=== PATIENT | female | born 1990 | race American Indian/Alaskan Native ===

== ENCOUNTER 2017-03-16 11:27 | Emergency (ER) | payer BC ==
[2017-03-16 11:34] VITALS: BP 131/96
[2017-03-16 14:38] LABS: Basophils % (Auto) 0.9 % (0.0-1.8); Eosinophils % (Auto) 0.6 % (0.0-4.3); Hematocrit 43.6 % (30.3-42.9); Hemoglobin 14.4 gm/dl (10.1-14.3); Mean Corpuscular HGB Conc 33 % (30-34); Mean Corpuscular Hemoglobin 28 pg (28-32); Mean Corpuscular Volume 84 fl (79-97); Platelet Count 329 K/mm3 (140-440); Red Blood Count 5.21 M/mm3 (3.65-5.03); Red Cell Distribution Width 12.6 % (13.2-15.2); White Blood Count 12.4 K/mm3 (4.5-11.0)
[2017-03-16 15:00] LABS: Anion Gap 20 mmol/L; BUN/Creatinine Ratio 25.71; Blood Urea Nitrogen 18 mg/dL (7-17); Calcium 9.4 mg/dL (8.4-10.2); Carbon Dioxide 26 mmol/L (22-30); Chloride 96.6 mmol/L (98-107); Glucose 74 mg/dL (65-100); Potassium 4.2 mmol/L (3.6-5.0); Sodium 138 mmol/L (137-145)
[2017-03-16] MEDS ORDERED: ZOFRAN IV ONE (16:14)
[2017-03-16] MEDS ORDERED: NACL 0.9% 1000 ML 1,000 ML IV ONE (16:14)
--- NOTE | 2017-03-16 16:26 | Emergency Department Report ---
ED N/V/D HPI - General Chief complaint: Nausea/Vomiting/Diarrhea Stated complaint: NAUSEA/VOMITING Time Seen by Provider: 03/16/17 15:57 Source: patient Mode of arrival: Ambulatory Limitations: No Limitations - History of Present Illness Initial comments: This is a 26-year-old female nontoxic, well nourished in appearance, no acute signs of distress presents to the ED complaining of nausea, vomiting, and diarrhea 1 day. Patient stated last night she was in an infant that had fluid outside the patient was eating and then came home that night she developed symptoms of nausea and vomiting and this one with diarrhea. This denies any fever, chills, chest pain, shortness of breath, tingling, abdominal pain, pelvic pain, headache, or stiff neck. Patient stated she believes something bad as her friend has a same symptoms. Patient denies any allergies. Past Medical history includes hypertension. MD complaint: nausea, vomiting, diarrhea -: Gradual, days(s) (1) Description of Vomiting: food contents Associated Abdominal Pain: No Radiation: none Pain Scale: 0 Improves with: none Worsens with: none Context: possible food poisoning Associated Symptoms: nausea/vomiting. denies: myalgias, chest pain, cough, diaphoresis, fever/chills, headaches, loss of appetite, malaise, rash, dysuria, shortness of breath, syncope, weakness - Related Data Previous Rx's Medication Instructions Recorded Last Taken Type Azithromycin [Zithromax Z-NIKKI] 250 mg PO DAILY #6 tablet 09/05/14 Unknown Rx Butalb/Acetaminophen/Caffeine 1 each PO Q6H #14 capsule 09/05/14 Unknown Rx [Fioricet 50-300-40 mg Capsule] Ibuprofen [Motrin] 600 mg PO Q8H PRN #30 tablet 09/05/14 Unknown Rx Promethazine /Codeine 5 ml PO Q6H PRN #30 ml 09/05/14 Unknown Rx [Phenergan/Codeine 6.25-10 mg/5 ml] Ondansetron [Zofran Odt] 4 mg PO Q6H PRN #15 tab.rapdis 03/16/17 Unknown Rx Allergies Allergy/AdvReac Type Severity Reaction Status Date / Time No Known Allergies Allergy Verified 09/04/14 23:00 ED Review of Systems ROS: Stated complaint: NAUSEA/VOMITING Other details as noted in HPI Constitutional: denies: chills, fever Eyes: denies: eye pain, eye discharge, vision change ENT: denies: ear pain, throat pain Respiratory: denies: cough, shortness of breath, wheezing Cardiovascular: denies: chest pain, palpitations Endocrine: no symptoms reported Gastrointestinal: nausea, vomiting. denies: abdominal pain, diarrhea Genitourinary: denies: urgency, dysuria, discharge Musculoskeletal: denies: back pain, joint swelling, arthralgia Skin: denies: rash, lesions Neurological: denies: headache, weakness, paresthesias Psychiatric: denies: anxiety, depression Hematological/Lymphatic: denies: easy bleeding, easy bruising ED Past Medical Hx - Past Medical History Previous Medical History?: Yes Hx Hypertension: Yes - Surgical History Past Surgical History?: Yes Additional Surgical History: c-sections, gallstone - Social History Smoking Status: Never Smoker Substance Use Type: None - Medications Home Medications: Home Medications Medication Instructions Recorded Confirmed Last Taken Type Azithromycin [Zithromax Z-NIKKI] 250 mg PO DAILY #6 tablet 09/05/14 Unknown Rx Butalb/Acetaminophen/Caffeine 1 each PO Q6H #14 capsule 09/05/14 Unknown Rx [Fioricet 50-300-40 mg Capsule] Ibuprofen [Motrin] 600 mg PO Q8H PRN #30 tablet 09/05/14 Unknown Rx Promethazine /Codeine 5 ml PO Q6H PRN #30 ml 09/05/14 Unknown Rx [Phenergan/Codeine 6.25-10 mg/5 ml] Ondansetron [Zofran Odt] 4 mg PO Q6H PRN #15 tab.rapdis 03/16/17 Unknown Rx ED Physical Exam - General Limitations: No Limitations General appearance: alert, in no apparent distress - Head Head exam: Present: atraumatic, normocephalic, normal inspection - Eye Eye exam: Present: normal appearance, PERRL, EOMI. Absent: scleral icterus, conjunctival injection, nystagmus, periorbital swelling, periorbital tenderness Pupils: Present: normal accommodation - ENT ENT exam: Present: normal exam, normal orophraynx, mucous membranes moist, TM's normal bilaterally, normal external ear exam - Neck Neck exam: Present: normal inspection, full ROM. Absent: tenderness, meningismus, lymphadenopathy, thyromegaly - Respiratory Respiratory exam: Present: normal lung sounds bilaterally. Absent: respiratory distress, wheezes, rales, rhonchi, stridor, chest wall tenderness, accessory muscle use, decreased breath sounds, prolonged expiratory - Cardiovascular Cardiovascular Exam: Present: regular rate, normal rhythm, normal heart sounds. Absent: bradycardia, tachycardia, irregular rhythm, systolic murmur, diastolic murmur, rubs, gallop - GI/Abdominal GI/Abdominal exam: Present: soft, normal bowel sounds. Absent: distended, tenderness, guarding, rebound, rigid, diminished bowel sounds, organomegaly - Expanded GI/Abdominal Exam Expanded GI/Abdominal exam: Absent: psoas sign, obturator sign, heel tap sign, Rivers's sign, Rovsing's sign, tenderness at [place]'s Point, ascites - Rectal Rectal exam: Present: deferred - Extremities Exam Extremities exam: Present: normal inspection, full ROM, normal capillary refill. Absent: tenderness, pedal edema, joint swelling, calf tenderness - Back Exam Back exam: Present: normal inspection, full ROM. Absent: tenderness, CVA tenderness (R), CVA tenderness (L), muscle spasm, paraspinal tenderness, vertebral tenderness, rash noted - Neurological Exam Neurological exam: Present: alert, oriented X3, CN II-XII intact, normal gait, reflexes normal - Psychiatric Psychiatric exam: Present: normal affect, normal mood - Skin Skin exam: Present: warm, dry, intact, normal color. Absent: rash ED Course Vital Signs 03/16/17 11:31 Temperature 98.4 F Pulse Rate 83 Respiratory 16 Rate Blood Pressure 131/96 O2 Sat by Pulse 100 Oximetry - Reevaluation(s) Reevaluation #1: 03/16/17 16:25 Patient is speaking in full sentences with no signs of distress noted. Reevaluation #2: 03/16/17 17:35 Patient is rather comfortably and stated nausea vomiting has subsided after medical treatment in the ED. The patient is complaining of slight headache is described as diffusely Roberta for 10. Patient received Toradol and Reglan in the ED. I will reassess patient after medical treatment. Reevaluation #3: 03/16/17 17:59 Patient stated headache has subsided without medical treatment and patient declined Toradol and Reglan. ED Medical Decision Making - Lab Data Result diagrams: 03/16/17 14:24 03/16/17 14:24 - Medical Decision Making 66-year-old female that presents with nausea vomiting and diarrhea times one day. Associated symptoms are consistent with possible gastroenteritis. CBC, BMP, UA and has been obtained. Patient denies any abdominal pain or blood pain. Denies dysuria or polyuria. Patient received 1000 normal saline as well as Zofran 4 mg IV. Patient also received Toradol 30 mg IV as well. Patient is not a by mouth challenge well with no signs of nausea or vomiting. Stated post treatment in the ED nausea vomiting subsided. Patient be discharged with Zofran. Patient instructed to follow-up with a primary care doctor in 3-5 days or if symptoms worsen or continue return to emergency room as was possible. At time time of discharge, the patient does not seem toxic or ill in appearance. No acute signs of distress noted. Patient agrees to discharge treatment plan of care. No further questions noted by the patient. Critical care attestation.: If time is entered above; I have spent that time in minutes in the direct care of this critically ill patient, excluding procedure time. ED Disposition Clinical Impression: Nausea and vomiting Qualifiers: Vomiting type: unspecified Vomiting Intractability: unspecified Qualified Code( s): R11.2 - Nausea with vomiting, unspecified Diarrhea Qualifiers: Diarrhea type: unspecified type Qualified Code(s): R19.7 - Diarrhea, unspecified Disposition: DC-01 TO HOME OR SELFCARE Is pt being admited?: No Does the pt Need Aspirin: No Condition: Stable Instructions: Ondansetron (By mouth), Electrolyte Supplement (By mouth), Acute Nausea and Vomiting (ED), Acute Diarrhea (ED) Additional Instructions: Follow-up with your primary care doctor in 3-5 days or if symptoms worsen or continue presents emergency room as well as possible- Prescriptions: Ondansetron [Zofran Odt] 4 mg PO Q6H PRN #15 tab.rapdis PRN Reason: Nausea And Vomiting Referrals: PRIMARY CARE, [Primary Care Provider] - 3-5 Days KOBY MARION MD [Staff Physician] - 3-5 Days [facility] [Outside] - 3-5 Days [facility] [Outside] - 3-5 Days Forms: Work/School Release Form(ED)
[2017-03-16] MEDS ORDERED: TORADOL IV ONE ×3 (16:27→17:34)
[2017-03-16] MEDS ORDERED: REGLAN IV ONE (17:34)
[2017-03-16 18:00] LABS: Bacteria,Urine 1+ /HPF (Negative); Bilirubin,Urine NEG (Negative); Blood,Urine NEG (Negative); Ketones,Urine TR mg/dL (Negative); Leukocyte Esterase,Urine NEG (Negative); Mucus,Urine 3+ /HPF; Nitrite,Urine NEG (Negative); Urobilinogen,Urine < 2.0 mg/dL (<2.0)
== END 2017-03-16 18:05 | disposition home or self-care (01) ==
LOC: ED 11:27
DX: R11.2 Nausea with vomiting, unspecified (principal); R19.7 Diarrhea, unspecified; I10 Essential (primary) hypertension
CPT/HCPCS: 36415; 80048; 81001; 81025; 85025; 96361; 96374; 96375; 99283; J1885; J2405; J7030

== ENCOUNTER 2019-01-21 13:27 | Inpatient (IN) | payer BC, OTHER ==
[2019-01-21] MEDS ORDERED: TORADOL IV ONE (13:47)
[2019-01-21] MEDS ORDERED: MORPHINE IV ONE (13:47)
[2019-01-21] MEDS ORDERED: ZOFRAN IV ONE ×2 (13:47→15:42)
--- NOTE | 2019-01-21 13:50 | Event Note ---
ED Screening Note Date of service: 01/21/19 Time: 13:49 ED Screening Note: 28 y/o female comes in for abd pain since 01/02/19. Has had blood in urine and has been seen by Melissa Chiu. Has lower back and abd pain with nausea and vomiting. This initial assessment/diagnostic orders/clinical plan/treatment(s) is/are subject to change based on patients health status, clinical progression and re- assessment by fellow clinical providers in the ED. Further treatment and workup at subsequent clinical providers discretion. Patient/guardian urged not to elope from the ED as their condition may be serious if not clinically assessed and managed. Initial orders include:
[2019-01-21 14:00] LABS: Basophils # (Auto) 0.1 K/mm3 (0.0-0.1); Basophils % (Auto) 0.4 % (0.0-1.8); Eosinophils % (Auto) 0.3 % (0.0-4.3); Hematocrit 43.3 % (30.3-42.9); Lymphocytes # (Auto) 1.7 K/mm3 (1.2-5.4); Lymphocytes % (Auto) 13.4 % (13.4-35.0); Mean Corpuscular HGB Conc 35 % (30-34); Mean Corpuscular Volume 85 fl (79-97); Monocytes # (Auto) 0.6 K/mm3 (0.0-0.8); Monocytes % (Auto) 4.3 % (0.0-7.3); Platelet Count 321 K/mm3 (140-440); Red Blood Count 5.09 M/mm3 (3.65-5.03); Red Cell Distribution Width 12.7 % (13.2-15.2)
[2019-01-21 14:17] LABS: Alanine Aminotransferase 14 units/L (7-56); Albumin 4.8 g/dL (3.9-5); BUN/Creatinine Ratio 21; Blood Urea Nitrogen 17 mg/dL (7-17); Calcium 9.5 mg/dL (8.4-10.2); Hemolysis Index 9
[2019-01-21] MEDS ORDERED: SUBLIMAZE IV ONE (15:42)
--- NOTE | 2019-01-21 16:16 | Emergency Department Report ---
ED Back Pain/Injury HPI - General Chief Complaint: Abdominal Pain Stated Complaint: LOWER EXTREME PAIN/BACK PAIN Time Seen by Provider: 01/21/19 15:01 Source: patient Limitations: No Limitations - History of Present Illness Initial Comments: Patient is a 28-year-old female who presents to the emergency room complaints of right lower back pain, right flank pain radiating to her right groin that began on 01/03/19. she has associated nausea, vomiting, and hematuria. she states that on 01/03/[address] [facility] and had a "normal CT abd pelvis and states her urine showed blood present but states it was normal otherwise." She states that last week she saw Dr. Valenzuela, urology and is supposed to be having a cystoscopy scheduled. she states that she also saw her [employer] Dr. Roche at [facility] and is having an US and pap smear performed on February 04. She states she had a partial hysterectomy in 2016. she does not report any fever, vaginal discharge, dysuria, or any other complaints. - Related Data Home Medications Medication Instructions Recorded Confirmed Last Taken No Known Home Medications [No 03/16/17 01/21/19 Unknown Reported Home Medications] Allergies Allergy/AdvReac Type Severity Reaction Status Date / Time No Known Allergies Allergy Verified 09/04/14 23:00 ED Review of Systems ROS: Stated complaint: LOWER EXTREME PAIN/BACK PAIN Other details as noted in HPI Comment: All other systems reviewed and negative ED Past Medical Hx - Past Medical History Hx Hypertension: Yes - Surgical History Past Surgical History?: Yes Additional Surgical History: c-sections, gallstone - Social History Smoking Status: Never Smoker Substance Use Type: None - Medications Home Medications: Home Medications Medication Instructions Recorded Confirmed Last Taken Type No Known Home Medications [No 03/16/17 01/21/19 Unknown History Reported Home Medications] ED Physical Exam - General Limitations: No Limitations ED Course Vital Signs 01/21/19 01/21/19 01/21/19 13:43 20:01 22:15 Temperature 98.3 F 97.3 F L Pulse Rate 90 61 101 H Respiratory 18 16 14 Rate Blood Pressure 156/99 139/102 Blood Pressure 119/77 [Right] O2 Sat by Pulse 100 99 100 Oximetry 01/21/19 01/21/19 01/21/19 22:20 22:25 22:26 Temperature Pulse Rate 91 H 72 Respiratory 13 10 L 14 Rate Blood Pressure 115/47 98/52 Blood Pressure [Right] O2 Sat by Pulse 99 99 Oximetry 01/21/19 01/21/19 01/21/19 22:30 22:33 22:45 Temperature Pulse Rate 83 86 Respiratory 12 16 10 L Rate Blood Pressure 110/68 115/76 Blood Pressure [Right] O2 Sat by Pulse 99 99 Oximetry 01/21/19 01/21/19 01/21/19 23:00 23:21 23:26 Temperature 98.0 F 97.5 F L Pulse Rate 73 85 Respiratory 12 18 12 Rate Blood Pressure 111/72 115/74 Blood Pressure [Right] O2 Sat by Pulse 100 99 Oximetry 01/21/19 01/22/19 23:33 00:07 Temperature Pulse Rate Respiratory 12 18 Rate Blood Pressure Blood Pressure [Right] O2 Sat by Pulse Oximetry - Consultations Consultation #1: 01/21/19 18:[address] Valenzuela, urology who recommended flomax, NPO now, will see tonight and do procedure or evaluate in the morning, advised to give IV abx, and pain meds as needed, admit to hospitalist 01/21/19 19:20 Dr. Daugherty spoke with Dr. Fairbanks, hospitalist who will admit pt to the hospital and will accept and resume care of the patient ED Medical Decision Making - Lab Data Result diagrams: 01/22/19 04:34 01/22/19 04:34 Lab Results 01/21/19 01/21/19 01/21/19 Range/Units 13:53 13:53 13:53 WBC 13.0 H (4.5-11.0) K/mm3 RBC 5.09 H (3.65-5.03) M/mm3 Hgb 15.0 H (10.1-14.3) gm/dl Hct 43.3 H (30.3-42.9) % MCV 85 (79-97) fl MCH 30 (28-32) pg MCHC 35 H (30-34) % RDW 12.7 L (13.2-15.2) % Plt Count 321 (140-440) K/mm3 Lymph % (Auto) 13.4 (13.4-35.0) % [place] % (Auto) 4.3 (0.0-7.3) % Eos % (Auto) 0.3 (0.0-4.3) % Baso % (Auto) 0.4 (0.0-1.8) % Lymph # 1.7 (1.2-5.4) K/mm3 [place] # 0.6 (0.0-0.8) K/mm3 Eos # 0.0 (0.0-0.4) K/mm3 Baso # 0.1 (0.0-0.1) K/mm3 Seg Neutrophils % 81.6 H (40.0-70.0) % Seg Neutrophils # 10.6 H (1.8-7.7) K/mm3 Sodium 141 (137-145) mmol/L Potassium 4.0 (3.6-5.0) mmol/L Chloride 101.8 (98-107) mmol/L Carbon Dioxide 27 (22-30) mmol/L Anion Gap 16 mmol/L BUN 17 (7-17) mg/dL Creatinine 0.8 (0.7-1.2) mg/dL Estimated GFR > 60 ml/min BUN/Creatinine Ratio 21 % Glucose 100 (65-100) mg/dL Calcium 9.5 (8.4-10.2) mg/dL Total Bilirubin 0.40 (0.1-1.2) mg/dL AST 14 (5-40) units/L ALT 14 (7-56) units/L Alkaline Phosphatase 77 (35-129) units/L Total Protein 8.2 (6.3-8.2) g/dL Albumin 4.8 (3.9-5) g/dL Albumin/Globulin Ratio 1.4 % Lipase 14 (13-60) units/L Urine Color (Yellow) Urine Turbidity (Clear) Urine pH (5.0-7.0) Ur Specific [place] (1.003-1.030) Urine Protein (Negative) mg/dL Urine Glucose (UA) (Negative) mg/dL Urine Ketones (Negative) mg/dL Urine Blood (Negative) Urine Nitrite (Negative) Urine Bilirubin (Negative) Urine Urobilinogen (<2.0) mg/dL Ur Leukocyte Esterase (Negative) Urine WBC (Auto) (0.0-6.0) /HPF Urine RBC (Auto) (0.0-6.0) /HPF U Epithel Cells (Auto) (0-13.0) /HPF Urine Mucus /HPF Urine Sperm (BATTERY CONTAINER TESTER) /HPF 01/21/19 Range/Units 16:48 WBC (4.5-11.0) K/mm3 RBC (3.65-5.03) M/mm3 Hgb (10.1-14.3) gm/dl Hct (30.3-42.9) % MCV (79-97) fl MCH (28-32) pg MCHC (30-34) % RDW (13.2-15.2) % Plt Count (140-440) K/mm3 Lymph % (Auto) (13.4-35.0) % [place] % (Auto) (0.0-7.3) % Eos % (Auto) (0.0-4.3) % Baso % (Auto) (0.0-1.8) % Lymph # (1.2-5.4) K/mm3 [place] # (0.0-0.8) K/mm3 Eos # (0.0-0.4) K/mm3 Baso # (0.0-0.1) K/mm3 Seg Neutrophils % (40.0-70.0) % Seg Neutrophils # (1.8-7.7) K/mm3 Sodium (137-145) mmol/L Potassium (3.6-5.0) mmol/L Chloride (98-107) mmol/L Carbon Dioxide (22-30) mmol/L Anion Gap mmol/L BUN (7-17) mg/dL Creatinine (0.7-1.2) mg/dL Estimated GFR ml/min BUN/Creatinine Ratio % Glucose (65-100) mg/dL Calcium (8.4-10.2) mg/dL Total Bilirubin (0.1-1.2) mg/dL AST (5-40) units/L ALT (7-56) units/L Alkaline Phosphatase (35-129) units/L Total Protein (6.3-8.2) g/dL Albumin (3.9-5) g/dL Albumin/Globulin Ratio % Lipase (13-60) units/L Urine Color [place] (Yellow) Urine Turbidity Cloudy (Clear) Urine pH 5.0 (5.0-7.0) Ur Specific [place] 1.028 (1.003-1.030) Urine Protein 100 mg/dl (Negative) mg/dL Urine Glucose (UA) Neg (Negative) mg/dL Urine Ketones Tr (Negative) mg/dL Urine Blood Neg (Negative) Urine Nitrite Neg (Negative) Urine Bilirubin Neg (Negative) Urine Urobilinogen < 2.0 (<2.0) mg/dL Ur Leukocyte Esterase Tr (Negative) Urine WBC (Auto) 13.0 H (0.0-6.0) /HPF Urine RBC (Auto) 14.0 (0.0-6.0) /HPF U Epithel Cells (Auto) 14.0 H (0-13.0) /HPF Urine Mucus 3+ /HPF Urine Sperm 1+ (BATTERY CONTAINER TESTER) /HPF - Radiology Data Radiology results: report reviewed CT abd/pelvis without contrast: 3 mm obstructive stone at the right uterter vesicular junction with right hydroureternephrosis - Medical Decision Making Patient is a 28-year-old female who presents to the emergency room complaints of right lower back pain, right flank pain radiating to her right groin that began on 01/03/19. she has associated nausea, vomiting, and hematuria. she states that on 01/03/[address] [facility] and had a "normal CT abd pelvis and states her urine showed blood present but states it was normal otherwise." She states that last week she saw Dr. Valenzuela, urology and is supposed to be having a cystoscopy scheduled. she states that she also saw her [employer] Dr. Roche at [facility] and is having an US and pap smear performed on February 04. She states she had a partial hysterectomy in 2017. she does not report any fever, vaginal discharge, dysuria, or any other complaints. labs with elevated WBC at 13. UA with elevated WBCs and leukocyte esterase. CT abd/pelvis shows 3 mm obstructive stone at the right utertervesicular junction with right hydroureternephrosis. Spoke with Dr. Valenzuela, urology who recommended flomax, NPO now, will see tonight and do procedure or evaluate in the morning, advised to give IV abx, and pain meds as needed, admit to hospitalist. Dr. Daugherty spoke with Dr. Fairbanks, hospitalist who will admit pt to the hospital and will accept and resume care of the patient. pt given IV zosyn. admitted to hospital. - Differential Diagnosis nephrolithiasis, UTI Critical care attestation.: If time is entered above; I have spent that time in minutes in the direct care of this critically ill patient, excluding procedure time. ED Disposition Clinical Impression: Flank pain, Nephrolithiasis Leukocytosis Qualifiers: Leukocytosis type: unspecified Qualified Code(s): D72.829 - Elevated white blood cell count, unspecified Hydronephrosis Qualifiers: Hydronephrosis type: with renal calculous obstruction Qualified Code(s): N13.2 - Hydronephrosis with renal and ureteral calculous obstruction Disposition: OP ADMIT IP TO THIS HOSP Is pt being admited?: Yes Does the pt Need Aspirin: No Condition: Stable
[2019-01-21 17:10] LABS: Bilirubin,Urine NEG (Negative); Blood,Urine NEG (Negative); Color,Urine Amber (Yellow); Mucus,Urine 3+ /HPF; Sperm,Urine 1+ /HPF (NP); Urobilinogen,Urine < 2.0 mg/dL (<2.0)
[2019-01-21] MEDS ORDERED: IBUPROFEN PO ONE (17:33)
--- NOTE | 2019-01-21 18:28 | Cat Scan Report ---
CT ABDOMEN AND PELVIS WITHOUT CONTRAST INDICATION / CLINICAL INFORMATION: Acute onset right flank pain. TECHNIQUE: Axial CT images were obtained through the abdomen and pelvis without IV contrast. All CT scans at [facility] location are performed using CT dose reduction for ALARA by means of automated exposure control. COMPARISON: None available. FINDINGS: LOWER CHEST: No significant abnormality. LIVER: No significant abnormality. GALLBLADDER: Removed BILE DUCTS: No significant abnormality. PANCREAS: No significant abnormality. SPLEEN: No significant abnormality. ADRENALS: No significant abnormality. RIGHT KIDNEY and URETER: Moderate right hydroureteronephrosis LEFT KIDNEY and URETER: No significant abnormality. STOMACH and SMALL BOWEL: No significant abnormality. COLON: No significant abnormality. APPENDIX: No significant abnormality. PERITONEUM: No free fluid. No free air. No fluid collection. LYMPH NODES: No significant adenopathy. AORTA and ARTERIES: No significant abnormality. IVC and VEINS: No significant abnormality. URINARY BLADDER: Obstructive 3 mm stone at the right ureterovesical junction REPRODUCTIVE ORGANS: No significant abnormality. ADDITIONAL FINDINGS: None. SKELETAL SYSTEM: No significant abnormality. IMPRESSION: Obstructive 3 mm stone at the right ureterovesical junction causing moderate right hydroureteronephro sis. Signer Name: Malachi Stewart MD Signed: 01/21/2019 5:32 PM Workstation Name: [id number]
[2019-01-21] MEDS ORDERED: ZOSYN/NS 4.5GM/100ML 4.5 GM/100 ML VIAL IV ONE (18:48)
[2019-01-21] MEDS ORDERED: FLOMAX PO ONE (18:48)
--- NOTE | 2019-01-21 19:25 | History and Physical Report ---
History of Present Illness Chief complaint: My side hurts History of present illness: 28 YO Female with HTN, Nephrolithiasis presents to ED for evaluation. Pt states that she has experienced right side flank pain over the past 2 1/2 weeks with progressively worsening symptoms over the past 4 days. Pt reports that her pain is 4-7/10, localized to the right flank with radiation to the right back. Pt also reports nausea, and multiple episodes of vomiting, hematuria, and inability to tolerate oral diet. Pt denies fever, chills, CP, Palpitations, Trauma, Skin rash, BRBPR, ingestion of Food/water from new or different sources. No prior admission for for review. No medication listed for reconciliation at time of admission. Pt admitted to surgical floor. Urology team consulted by ED staff. Surgical intervention as per urology team. Past History Past Medical History: hypertension, other (Nephrolithiasis) Past Surgical History: Social history: single. denies: smoking, alcohol abuse, prescription drug abuse Family history: hypertension Medications and Allergies Allergies Allergy/AdvReac Type Severity Reaction Status Date / Time No Known Allergies Allergy Verified 09/04/14 23:00 Home Medications Medication Instructions Recorded Confirmed Last Taken Type No Known Home Medications [No 03/16/17 01/21/19 Unknown History Reported Home Medications] Review of Systems Constitutional: no weight loss, no weight gain, no fever, no chills Ears, nose, mouth and throat: no ear pain, no ear discharge, no tinnitis, no decreased hearing, no nose pain, no sinus pressure Breasts: no change in shape, no swelling, no mass Cardiovascular: no chest pain, no orthopnea, no rapid/irregular heart beat, no edema, no lightheadedness Respiratory: no cough, no cough with sputum, no hemoptysis, no shortness of breath, no dyspnea on exertion Gastrointestinal: nausea, vomiting, no constipation, no melena, no hematochezia, no loss of appetite Genitourinary Female: flank pain, hematuria, no pelvic pain, no dysuria, no urgency, no stress incontinence, no post void dribbling, no incomplete emptying Rectal: no pain, no incontinence, no bleeding Musculoskeletal: no neck stiffness, no neck pain, no shooting arm pain, no arm numbness/tingling, no low back pain Integumentary: no rash, no pruritis, no redness, no sores, no wounds, no jaundice Neurological: no transient paralysis, no paralysis, no weakness, no numbness, no seizures, no syncope, no tremors, no ataxia Psychiatric: no anxiety, no memory loss, no change in sleep habits, no sleep disturbances, no hypersomnia, no change in appetite, no change in libido Endocrine: no cold intolerance, no heat intolerance, no polyphagia, no excessive thirst, no polydipsia, no polyuria, no nocturia Hematologic/Lymphatic: no easy bruising, no easy bleeding, no lymphadenopathy, no lymphedema Allergic/Immunologic: no urticaria, no allergic rhinitis, no persistent infect ions, no anaphylaxis, no angioedema Exam - Constitutional Vitals: Temp Pulse Resp BP Pulse Ox 90 18 156/99 100 01/21/19 13:43 01/21/19 13:43 01/21/19 13:43 01/21/19 13:43 General appearance: Present: mild distress - EENT Eyes: Present: PERRL ENT: hearing intact, clear oral mucosa - Neck Neck: Present: supple, normal ROM - Respiratory Respiratory effort: normal Respiratory: bilateral: CTA - Cardiovascular Heart Sounds: Present: S1 & S2. Absent: rub, click - Extremities Extremities: pulses symmetrical, No edema Peripheral Pulses: within normal limits - Abdominal General gastrointestinal: Present: soft, non-tender, non-distended, normal bowel sounds Female genitourinary: Present: normal - Integumentary Integumentary: Present: clear, warm, dry - Musculoskeletal Musculoskeletal: gait normal, strength equal bilaterally - Psychiatric Psychiatric: appropriate mood/affect, intact judgment & insight - Neurologic Neurologic: CNII-XII intact, moves all extremities Results - Labs CBC & Chem 7: 01/21/19 13:53 01/21/19 13:53 Labs: Abnormal lab results 01/21/19 01/21/19 Range/Units 13:53 16:48 WBC 13.0 H (4.5-11.0) K/mm3 RBC 5.09 H (3.65-5.03) M/mm3 Hgb 15.0 H (10.1-14.3) gm/dl Hct 43.3 H (30.3-42.9) % MCHC 35 H (30-34) % RDW 12.7 L (13.2-15.2) % Seg Neutrophils % 81.6 H (40.0-70.0) % Seg Neutrophils # 10.6 H (1.8-7.7) K/mm3 Urine WBC (Auto) 13.0 H (0.0-6.0) /HPF U Epithel Cells (Auto) 14.0 H (0-13.0) /HPF Assessment and Plan - Patient Problems (1) SIRS (systemic inflammatory response syndrome) Current Visit: Yes Status: Acute Plan to address problem: Iv antibiotic therapy, urinalysis, CBC, CMP, chest x ray, IVF resuscitation therapy (2) Hydronephrosis Current Visit: Yes Status: Acute Qualifiers: Hydronephrosis type: with renal calculous obstruction Qualified Code(s): N13.2 - Hydronephrosis with renal and ureteral calculous obstruction (3) Nephrolithiasis Current Visit: Yes Status: Acute Plan to address problem: CT Abdomen pelvis, urology consulted in ED, pending surgical intervention. (4) DVT prophylaxis Current Visit: Yes Status: Acute Plan to address problem: SCD to BLE while in bed,
[2019-01-21] MEDS ORDERED: MORPHINE IV PRN (19:27)
[2019-01-21] MEDS ORDERED: SODIUM CHLORIDE FLUSH SYRINGE 10 ML IV PRN (19:27)
[2019-01-21] MEDS ORDERED: TYLENOL PO PRN (19:27)
[2019-01-21] MEDS ORDERED: ZOFRAN IV PRN (19:27)
[2019-01-21] MEDS ORDERED: NACL 0.9% 1000 ML 1,000 ML IV SCH (20:00)
[2019-01-21] MEDS ORDERED: LEVAQUIN 750MG/150ML 750 MG/150 ML BAG IV SCH (20:00)
[2019-01-21] MEDS ORDERED: DIPRIVAN 10 MG/ML IV ONE (20:41)
[2019-01-21] MEDS ORDERED: XYLOCAINE MPF 2% ONE (20:41)
[2019-01-21] MEDS ORDERED: DILAUDID ONE (20:41)
[2019-01-21] MEDS ORDERED: NACL 0.9% 1000 ML 1,000 ML ONE ×2 (20:45→22:20)
--- NOTE | 2019-01-21 20:57 | Anesthesia Consultation ---
Anesthesia Consult and Med Hx Date of service: 01/21/19 - Airway Anesthetic Teeth Evaluation: Good (braces upper and lower) ROM Head & Neck: Adequate Mental/Hyoid Distance: Adequate Mallampati Class: Class II Intubation Access Assessment: Probably Good - Pre-Operative Health Status ASA Pre-Surgery Classification: ASA2 Proposed Anesthetic Plan: General - Cardiovascular System Hx Hypertension: Yes (no meds) - Endocrine Hx Renal Disease: Yes (right kidney stone)
--- NOTE | 2019-01-21 20:58 | Anesthesia Day of Surgery ---
Anesthesia Day of Surgery - Day of Surgery Patient Examined: Yes Patient H&P Reviewed: Yes Patient is NPO: Yes
[2019-01-21] MEDS ORDERED: VERSED ONE (21:17)
--- NOTE | 2019-01-21 21:25 | Progress Note ---
Assessment and Plan informed consent obtained consult dictated Subjective Date of service: 01/21/19 Principal diagnosis: r uvj juana Objective - Constitutional Vitals: Vital Signs - 12hr 01/21/19 01/21/19 13:43 20:01 Temperature 98.3 F Pulse Rate 90 61 Respiratory 18 16 Rate Blood Pressure 156/99 Blood Pressure 119/77 [Right] O2 Sat by Pulse 100 99 Oximetry - Labs CBC & Chem 7: 01/21/19 13:53 01/21/19 13:53 Labs: Abnormal lab results 01/21/19 01/21/19 Range/Units 13:53 16:48 WBC 13.0 H (4.5-11.0) K/mm3 RBC 5.09 H (3.65-5.03) M/mm3 Hgb 15.0 H (10.1-14.3) gm/dl Hct 43.3 H (30.3-42.9) % MCHC 35 H (30-34) % RDW 12.7 L (13.2-15.2) % Seg Neutrophils % 81.6 H (40.0-70.0) % Seg Neutrophils # 10.6 H (1.8-7.7) K/mm3 Urine WBC (Auto) 13.0 H (0.0-6.0) /HPF U Epithel Cells (Auto) 14.0 H (0-13.0) /HPF Medications & Allergies - Medications Allergies/Adverse Reactions: Allergies No Known Allergies Allergy (Verified 09/04/14 23:00) Home Medications: Home Medications Medication Instructions Recorded Confirmed Last Taken Type No Known Home Medications [No 03/16/17 01/21/19 Unknown History Reported Home Medications] Active Medications: Generic Name Dose Route Start Last Admin Trade Name Freq PRN Reason Stop Dose Admin Acetaminophen 650 mg 01/21/19 19:27 Tylenol PO Q4H PRN Pain MILD(1-3)/Fever >100.5/SCHMID Enoxaparin Sodium 40 mg 01/22/19 22:00 Lovenox SUB-Q QDAY@2200 REVA Fentanyl 50 mcg 01/21/19 21:08 Sublimaze IV 01/22/19 04:15 Q5MIN PRN Pain , Severe (7-10) Sodium Chloride 1,000 mls @ 125 mls/hr 01/21/19 20:00 Nacl 0.9% 1000 Ml IV DIRECT REVA Levofloxacin/Dextrose 750 mg in 150 mls @ 100 mls/hr 01/21/19 20:00 Levaquin 750mg/150ml IV Q24H [facility] Protocol Morphine Sulfate 2 mg 01/21/19 19:27 Morphine IV Q4H PRN Pain, Moderate (4-6) Ondansetron HCl 4 mg 01/21/19 19:27 Zofran IV Q8H PRN Nausea And Vomiting Sodium Chloride 10 ml 01/21/19 22:00 Sodium Chloride Flush Syringe 10 Ml IV BID [facility] Sodium Chloride 10 ml 01/21/19 19:27 Sodium Chloride Flush Syringe 10 Ml IV PRN PRN LINE FLUSH Tamsulosin HCl 0.4 mg 01/22/19 10:00 Flomax PO QDAY [facility]
[2019-01-21] MEDS ORDERED: WATER FOR IRRIG STERILE IR ONE (21:45)
[2019-01-21] MEDS ORDERED: ZOFRAN ONE (21:58)
[2019-01-21] MEDS ORDERED: TORADOL ONE (21:58)
--- NOTE | 2019-01-21 22:19 | Post Operative Note ---
Date of procedure: 01/21/19 Pre-op diagnosis: renal colic Post-op diagnosis: same Findings: r distal stone Procedure: cysto stone ext ureteroscopy Anesthesia: GETA Surgeon: EMMANUEL HER Estimated blood loss: none Pathology: list (stone) Specimen disposition: given to patient/family Condition: stable Disposition: PACU
--- NOTE | 2019-01-21 22:21 | Discharge Summary ---
Short Stay Discharge Plan Activity: other (no straining ) Weight Bearing Status: Full Weight Bearing Diet: regular Special Instructions: other Durable Medical Equipment Needed Upon Discharge: other (j stent ) Follow up with: HARSHAL PROCTOR MD [Primary Care Provider] - 3-5 Days
[2019-01-21] MEDS: SUBLIMAZE IV PRN ×2 (22:26→22:33)
[2019-01-21] MEDS ORDERED: SUBLIMAZE ONE (22:28)
--- NOTE | 2019-01-21 22:38 | Fluoroscopy Report ---
INTRAOPERATIVE FLUOROSCOPY: ABDOMEN INDICATION: History of right ureteral stone. Guidance for stone extraction and stent placement. TECHNIQUE: Intraoperative spot images were obtained during the procedure. FINDINGS: No distinct renal or ureteral stones are identified. The subsequently placed right ureteral stent is in good position. Please see the procedure report for further details. Fluoroscopy Time: 2 minutes, 1 second. Fluoroscopy Images: 8. Signer Name: Claudio Rios MD Signed: 01/21/2019 10:34 PM Workstation Name: [id number]
[2019-01-21] MEDS ORDERED: BENADRYL ONE (22:43)
[2019-01-21] MEDS ORDERED: BENADRYL IV ONE (22:45)
--- NOTE | 2019-01-21 23:28 | Post Anesthesia Evaluation ---
- Post Anesthesia Evaluation Patient Participated: Yes Airway Patent: Yes Stable Respiratory Function: Yes Nausea/Vomiting: No Temp > 96.8F: Yes Pain Manageable: Yes Adequeate Hydration: Yes Anesthesia Complications: No
--- NOTE | 2019-01-22 00:15 | Operative Report ---
PREOPERATIVE DIAGNOSIS: Severe right flank pain, right distal stone. POSTOPERATIVE DIAGNOSIS: Severe right flank pain, right distal stone. PROCEDURE: Cystoscopy, right retrograde, right ureteral balloon dilatation, ureteroscopy, stone extraction, J stent. SURGEON: Milton Valenzuela MD ANESTHESIA: General. FINDINGS: This is a woman who is 28 years old with severe pain. She had a minimally elevated white count and no fever or chills, now presents for treatment. DESCRIPTION OF PROCEDURE: The patient was brought to the operating room and placed on the operating table. Following induction of anesthesia, placed in lithotomy position, prepped and draped in usual sterile fashion. Cystourethroscopy showed severe edema at the right orifice. A Glidewire eventually coiled in the kidney. Balloon dilatation was carried out. The stone was spiculed and extracted. A double-J stent was left, 24 x 6-[place]. The patient tolerated the procedure well. Family notified. She will be given the stone, brought to recovery in stable condition. JOB# [id number] YAQUELIN/KO
--- NOTE | 2019-01-22 01:46 | Consultation ---
HISTORY OF PRESENT ILLNESS: The patient is a 28-year-old woman who is admitted with severe right flank pain. She has had this yesterday, was not bad, but again severe nausea and vomiting last night. She could not tolerate anything. She has a distal ureterovesical junction stone. PAST MEDICAL HISTORY: Hypertension. PAST SURGICAL HISTORY: . SOCIAL HISTORY: Negative. FAMILY HISTORY: Noncontributory. ALLERGIES: Negative. MEDICATIONS: Just some pain medications. REVIEW OF SYSTEMS: Severe pain. PHYSICAL EXAMINATION: GENERAL: She is in mild discomfort, in no distress. White count is a little elevated. ABDOMEN: Soft, nondistended. Mild right CVA tenderness. IMPRESSION: Right ureteral stone, slightly elevated white count, for cystoscopy, ureteroscopy, stenting as needed. She has no evidence of sepsis. We will try to get her stone out today if possible. JOB# [id number] YAQUELIN/KO
[2019-01-22] MEDS: SODIUM CHLORIDE FLUSH SYRINGE 10 ML IV SCH ×3 (03:12→09:18)
[2019-01-22 05:28] LABS: Basophils % (Auto) 0.3 % (0.0-1.8); Eosinophils % (Auto) 0.5 % (0.0-4.3); Hematocrit 34.9 % (30.3-42.9); Hemoglobin 12.3 gm/dl (10.1-14.3); Lymphocytes # (Auto) 1.9 K/mm3 (1.2-5.4); Lymphocytes % (Auto) 24.9 % (13.4-35.0); Mean Corpuscular HGB Conc 35 % (30-34); Mean Corpuscular Volume 85 fl (79-97); Monocytes # (Auto) 0.5 K/mm3 (0.0-0.8); Monocytes % (Auto) 6.1 % (0.0-7.3); Platelet Count 229 K/mm3 (140-440); Red Cell Distribution Width 12.6 % (13.2-15.2)
[2019-01-22 05:48] LABS: Alanine Aminotransferase 36 units/L (7-56); Albumin 3.5 g/dL (3.9-5); Calcium 7.7 mg/dL (8.4-10.2); Hemolysis Index 3
[2019-01-22 06:15] LABS: BUN/Creatinine Ratio 23; Blood Urea Nitrogen 18 mg/dL (7-17)
[2019-01-22 08:12] VITALS: BP 90/50
[2019-01-22] MEDS: FLOMAX PO SCH (08:17)
--- NOTE | 2019-01-22 13:48 | Discharge Summary ---
Providers - Providers Date of Admission: 01/21/19 19:27 Date of discharge: 01/22/19 Attending physician: LO HOOKS 01/21/19 18:48 Consult to Physician [CONS] Stat Comment: Consulting Provider: EMMANUEL HER Physician Instructions: Reason For Exam: nephrolithiasis [facility] Hospital[facility] Condition: Stable Hospital course: (1) SIRS (systemic inflammatory response syndrome) Current Visit: Yes Status: Acute Plan to address problem: antibiotics not necessary as outpatient (2) Hydronephrosis Current Visit: Yes Status: Acute Qualifiers: Hydronephrosis type: with renal calculous obstruction Qualified Code(s): N13.2 - Hydronephrosis with renal and ureteral calculous obstruction (3) Nephrolithiasis Current Visit: Yes Status: Acute Plan to address problem: Rt distal stone Procedure: cysto stone ext ureteroscopy Anesthesia: GETA Surgeon: EMMANUEL HER Estimated blood loss: none Pathology: list (stone) Specimen disposition: given to patient/family Condition: stable Disposition: PACU Disposition: TO HOME OR SELFCARE Core Measure Documentation - Palliative Care Palliative Care/ Comfort Measures: Not Applicable - Core Measures Any of the following diagnoses?: none Exam - Constitutional Vitals: Temp Pulse Resp BP Pulse Ox 98.7 F 72 18 90/50 98 01/22/19 07:37 01/22/19 07:37 01/22/19 10:05 01/22/19 07:37 01/22/19 07:37 General appearance: Present: no acute distress, well-nourished - EENT Eyes: Present: PERRL ENT: hearing intact, clear oral mucosa - Neck Neck: Present: supple, normal ROM - Respiratory Respiratory effort: normal Respiratory: bilateral: CTA - Cardiovascular Heart Sounds: Present: S1 & S2. Absent: rub, click - Extremities Extremities: pulses symmetrical, No edema Peripheral Pulses: within normal limits - Abdominal General gastrointestinal: Present: soft, non-tender, non-distended, normal bowel sounds Female genitourinary: Present: normal - Integumentary Integumentary: Present: clear, warm, dry - Musculoskeletal Musculoskeletal: gait normal, strength equal bilaterally - Psychiatric Psychiatric: appropriate mood/affect, intact judgment & insight - Neurologic Neurologic: CNII-XII intact, moves all extremities Plan Activity: no restrictions Diet: regular [facility] LUZ MARIA [Primary Care Provider] - 3-5 Days EMMANUEL HER MD [Staff Physician] - 7 Days
[2019-01-22] MEDS ORDERED: LOVENOX SUB-Q SCH (22:00)
== END 2019-01-22 12:30 | disposition home or self-care (01) | DRG 660 ==
LOC: ED 13:27 → 3B-SURG 19:27
PROVIDERS: ADMIT Internal Medicine; ATTEND Internal Medicine
PROC: 0T768DZ Dilation of Right Ureter with Intraluminal Device, Via Natural or Artificial Opening Endoscopic (ICD-10-PCS; principal; 2019-01-21)
PROC: 0TC68ZZ Extirpation of Matter from Right Ureter, Via Natural or Artificial Opening Endoscopic (ICD-10-PCS; 2019-01-21)
PROC: BT1D1ZZ Fluoroscopy of Right Kidney, Ureter and Bladder using Low Osmolar Contrast (ICD-10-PCS; 2019-01-21)
DX: N13.2 Hydronephrosis with renal and ureteral calculous obstruction (principal); R65.10 Systemic inflammatory response syndrome (SIRS) of non-infectious origin without acute organ dysfunction; I10 Essential (primary) hypertension; D72.829 Elevated white blood cell count, unspecified; Z90.711 Acquired absence of uterus with remaining cervical stump; Z82.49 Family history of ischemic heart disease and other diseases of the circulatory system
CPT/HCPCS: 36415; 74176; 74420; 80053; 81001; 83690; 85025; 87086; 96365; 96367; 96375; G0378; A4217; C1726; C1758; C1769; C2617; J1170; J1200; J1885; J1956; J2250; J2270; J2405; J2543; J2704; J3010; J7030; Q9967